=== PATIENT | male | born 1990 | race Caucasian/White ===

== ENCOUNTER 2022-02-04 17:36 | Emergency (ER) | payer MEDICAID ==
[~2022-02-04] VITALS: Ht 177.8 cm; Wt 102.0 kg
[2022-02-04] MEDS ORDERED: BACITRACIN ZINC OINT UDPKT TOP ONE (21:30)
[2022-02-04] MEDS ORDERED: TETANUS, DIPHTHERIA, PERTUSSIS VAC/PF 0.5ML (>10YR OLD) IM ONE (21:30)
[2022-02-04] MEDS ORDERED: LIDOCAINE HCL 1% 20ML VIAL (Pyxis) INJ INFIL ONE (21:30)
[2022-02-04] MEDS ORDERED: HYDROCODONE/ACETAMINOPHEN 5/325MG TABLET PO ONE (22:45)
[2022-02-04] MEDS ORDERED: IBUP-2029 PO (23:27)
[2022-02-04] MEDS ORDERED: BO1 TP (23:27)
[2022-02-04 23:31] VITALS: BP 138/80
== END 2022-02-05 00:05 | disposition home or self-care (01) ==
LOC: ER 17:36
DX: S61.412A Laceration without foreign body of left hand, initial encounter (principal); W29.8XXA Contact with other powered hand tools and household machinery, initial encounter; Y93.89 Activity, other specified; Y92.018 Other place in single-family (private) house as the place of occurrence of the external cause
CPT/HCPCS: 12001; 73130; 90471; 90715; 99283; J3490